=== PATIENT | male | born 1975 | race Caucasian/White ===

== ENCOUNTER 2019-09-13 19:56 | Emergency (ER) | payer MEDICARE, MEDICAID, SELFPAY ==
--- NOTE | ~2019-09-13 | XR_ITS ---
EXAMINATION: XR chest 2V EXAM DATE: 09/13/2019 22:35 INDICATION: Shortness of breath. Headache, fatigue. History of asthma and hypertension. TECHNIQUE: Frontal and lateral projections of the chest obtained and reviewed. Comparison is made to prior examination from 07/16/2018. FINDINGS: Cardiac silhouette is enlarged but stable in size compared to prior exam. Large epicardial fat pads. Calcified mediastinal, right hilar granulomas unchanged. Right basilar calcified parenchym al granuloma. No confluent consolidation, pneumothorax or pleural effusion suspected. There are no os seous abnormalities identified. IMPRESSION: No acute cardiopulmonary findings. Reviewed, dictated and finalized at location A.
--- NOTE | ~2019-09-13 | CT_ITS ---
EXAMINATION: CT brain wo con EXAM DATE: 09/13/2019 22:25 INDICATION: Headaches, temporary change in awareness. TECHNIQUE: Spiral CT of the head was performed without contrast. Axial, coronal and sagittal images were reviewed. The dose-length product (DLP) for this examination was 605.33 mGy-cm. The exposure w as tailored according to patient size, and iterative reconstruction (ASIR) was used as additional dos e reduction technique. Comparison is made to prior examination from 09/23/2017. FINDINGS: There is no acute intraparenchymal hemorrhage. No evidence of intraparenchymal brain mass lesion. No evidence of acute infarction. There is no mass effect or midline shift. The ventricles are normal in size. There are no extra-axial collections. There are no acute calvarial fractures. T he orbits are unremarkable. Soft tissue is unremarkable. The visualized sinuses and mastoid air rodolfo ls are well aerated. IMPRESSION: 1. No acute intracranial findings. Reviewed, dictated and finalized at location A.
[2019-09-13 20:03] VITALS: BP 185/111; PULSE 88; RESP 20; TEMP 36.8; O2SAT 97
--- NOTE | 2019-09-13 20:10 | ECG_ITS ---
Measurements Intervals [place] Rate: 90 P: 49 [place]: 195 QRS: -33 QRSD: 154 T: 26 QT: 414 QTc: 508 Interpretive Statements SINUS RHYTHM LEFT AXIS DEVIATION RIGHT BUNDLE BRANCH BLOCK BASELINE ARTIFACT- I, III, AVL, AVF, V2 ABNORMAL ECG Electronically Signed On 09-14-2019 7:18:37 CDT by Sachin Cloe D.O.
[2019-09-13 20:33] LABS: Basophils Absolute Auto 0.1 K/mm3 (0.0-0.1); Basophils Percent Auto 0.3 % (0.2-1.2); Eosinophils Absolute Auto 0.1 K/mm3 (0-0.3); Hematocrit 40.2 % (42.0-52.0); Hemoglobin 13.8 g/dL (14.0-18.0); Immature Granulocyte Absolute 0.08 K/mm3 (0.00-0.031); Immature Granulocyte Percent A 0.6 % (0-0.5); Lymphocytes Absolute Auto 2.43 K/mm3 (0.9-3.2); Lymphocytes Percent Auto 16.9 % (18.3-44.2); Mean Corpuscular HGB Conc 34.3 g/dl (32-36); Mean Corpuscular Hemoglobin 30.1 pg (26-34); Mean Corpuscular Volume 87.8 fl (80-100); Mean Platelet Volume 12.6 fl (7.4-10.4); Monocytes Absolute Auto 1.5 K/mm3 (0.1-0.6); Monocytes Percent Auto 10.5 % (2.6-8.5); Neutrophils Absolute Auto 10.2 K/mm3 (1.3-6.7); Neutrophils Percent Auto 70.7 % (45.5-73.1); Platelet Count Result 169 k/mm3 (150-375); Red Blood Count 4.58 M/mm3 (4.6-6.20); Red Cell Distribution Width 13.2 % (11.5-14.5); White Blood Count 14.4 K/mm3 (4.5-10.0)
[2019-09-13 20:41] LABS: INR 0.9; Prothrombin Time 12.1 Seconds (11.1-14.7)
[2019-09-13 20:42] LABS: Partial Thromboplastin Time 25.2 SECONDS (22.3-36.8)
[2019-09-13 20:44] LABS: Ammonia 10 umol/L (9-30); Ethanol < 10 mg/dL (<10)
[2019-09-13 20:45] LABS: Alanine Aminotransferase 26 U/L (4-50); Albumin Level 4.8 g/dL (3.5-5.1); Alkaline Phosphatase 83 U/L (38-126); Aspartate Amino Transferase 23 U/L (17-59); Bilirubin,Total 0.5 mg/dL (0.2-1.3); Blood Urea Nitrogen 21 mg/dL (9-20); Calcium 9.5 mg/dL (8.4-10.2); Carbon Dioxide 23 mmol/L (22-30); Chloride 97 mmol/L (98-107); Estimated CRCL calculation 98 ml/min; Estimated Glomerular Filt Rate > 60; Glucose 113 mg/dL (75-110); Potassium 3.3 mmol/L (3.4-5.0); Sodium 132 mmol/L (137-145)
[2019-09-13 20:56] LABS: Troponin I < 0.012 ng/mL (0.000-0.034)
[2019-09-13 20:59] VITALS: BP 179/124; PULSE 91; RESP 18; O2SAT 99
[2019-09-13 21:27] LABS: Add Urine Microscopic? NO; Appearance Urine Clear (Clear); Bilirubin Urine Negative (Negative); Blood Urine Negative (Negative); Color Urine Colorless (Yellow); Glucose Urine UA Negative (Negative); Ketones Urine Negative (Negative); Leukocyte Esterase Ur Negative LEU/UL (Negative); Nitrate Urine Negative (Negative); Protein Urine Negative (Negative); Urobilinogen Urine Negative mg/dL (<2.0)
[2019-09-13 21:28] LABS: Specific Grav Ur 1.003 (1.001-1.035)
[2019-09-13 21:31] LABS: Amphetamine Screen Urine Negative (Negative); Barbiturate Screen Urine Negative (Negative); Benzodiazepines Screen Urine Negative (Negative); Cannabinoid Screen Urine Negative (Negative); Cocaine Screen Urine Negative (Negative); Methadone Screen Urine Negative (Negative); Opiate Screen Urine Negative (Negative); Phencyclidine Screen Urine Negative (Negative)
--- NOTE | 2019-09-13 22:13 | ED.GENADULT ---
HPI - General Adult General Chief complaint: Altered Mental Status Stated complaint: Confusion Source: patient and other (watch case polisher) Mode of arrival: ambulatory History of Present Illness HPI narrative: This patient is a 43 year old male with history of bipolar, schizophrenia who presents from his shelter for evaluation of anxiety and headache. His watch case polisher is at bedside and she states patient has not been active today. Patient has been complaining of headache off and on. She states she thinks he is having alot of difficulty with his anxiety. Patient states he was having mild frontal headache earlier but is is not that bad currently. HE denies nausea, vomiting, fever, chest pain or visual changes. He thinks it is a sinus headache. Related Data Home Medications Medication Instructions Recorded Confirmed Buspar 15 mg PO BID 09/13/19 Cogentin 1 mg PO DAILY 09/13/19 Daily Multivitamin 1 cap PO DAILY 09/13/19 Fiber Laxative (methylcellulo) 1 cap PO BID 09/13/19 Symbicort 2 puff INFILTRATION BID 09/13/19 acetaminophen [Tylenol] 1,000 mg PO Q4-8H PRN 09/13/19 09/13/19 albuterol sulfate 2 puff INHALATION Q4-6H PRN 09/13/19 09/13/19 aspirin [Aspirin Low Dose] 81 mg PO DAILY 09/13/19 09/13/19 atorvastatin 40 mg PO DAILY 09/13/19 09/13/19 carvedilol 50 mg PO BID 09/13/19 clozapine 325 mg PO DIRECTED 09/13/19 hydralazine 10 mg PO TID 09/13/19 ibuprofen [Motrin IB] 400 mg PO Q6-8H PRN 09/13/19 losartan [Cozaar] 100 mg PO DAILY 09/13/19 lurasidone 80 mg PO DIRECTED 09/13/19 venlafaxine 150 mg PO DAILY 09/13/19 Allergies Allergy/AdvReac Type Severity Reaction Status Date / Time pcn Allergy Mild rash Uncoded 07/16/18 09:49 Review of Systems Review of Systems: All systems reviewed & are unremarkable except as noted in HPI and below Constitutional: Constitutional: Denies chills and Denies fever(s) Eyes: Eyes: Reports no additional eye complaints ENT: Denies dizziness, Denies nasal congestion and Denies sore throat Cardiovascular: Cardiovascular: Denies chest pain Respiratory: Respiratory: Denies cough, Reports dyspnea and Denies wheezing Gastrointestinal: Gastrointestinal: Denies abdominal pain, Denies diarrhea, Denies nausea and Denies vomiting Neurologic: Reports headache(s) Psychiatric: Psychiatric: Reports anxiety PMFSH Past Medical History Medical History (Updated 09/14/19 @ 00:51 by Marah Valdez MD) Hypertension Social History Social History (Updated 09/14/19 @ 07:52 by Marah Valdez MD) Smoking status: Current every day smoker Alcohol intake: never Substance use: never Exam Narrative: Exam Narrative: GENERAL: Well-appearing, well-nourished, and in no acute distress. HEAD: Normocephalic, atraumatic EYES: PERRLA and EOMI, conjunctiva clear without discharge EARS: TM's clear bilaterally without erythema or dullness NOSE: Nares clear, no rhinorrhea or epistaxis THROAT:Mucous membranes moist, Oropharynx normal without erythema, exudate, peritonsillar swelling or fluctuance NECK: Supple, without lymphadenopathy or mass RESPIRATORY: No respiratory distress, Airway patent, Respirations non-labored, Clear to auscultation without rales, rhonchi or wheeze HEART: Regular rate and rhythm. No murmur heard. Normal peripheral pulses. ABDOMEN: Soft, nontender, nondistended, normal active bowel sounds. No masses. No rebound or guarding, No organomegaly. EXTREMITIES: No edema, normal strength with full range of motion. SKIN: Warm, dry, normal color without rash NEURO: Alert and oriented x3. CN 2-12 grossly intact. No focal deficits. PSYCH: Normal mood , flat affect Course Consultations Consultation #1: PAtient is in no acute distress. He states he is better and ready for discharge. I have discussed his leukocytosis. Date: 09/14/19 Time: 00:49 Vital Signs Vital signs: Vital Signs Temperature 98.3 F 09/13/19 20:03 Pulse Rate 88 09/13/19 20:03 Res
[2019-09-13 22:19] VITALS: BP 145/92; PULSE 72; RESP 18
[2019-09-13 23:00] VITALS: BP 154/99; PULSE 99; RESP 13; O2SAT 95
[2019-09-14 01:10] VITALS: BP 150/80; PULSE 78; RESP 20; O2SAT 99
== END 2019-09-14 01:10 | disposition home or self-care (01) ==
PROVIDERS: Emergency Provider General Practice
DX: I10 Essential (primary) hypertension (principal); D72.829 Elevated white blood cell count, unspecified; F17.200 Nicotine dependence, unspecified, uncomplicated; F31.9 Bipolar disorder, unspecified; F20.9 Schizophrenia, unspecified; R06.02 Shortness of breath; J45.909 Unspecified asthma, uncomplicated
CPT/HCPCS: 36415; 70450; 71046; 80053; 80307; 81003; 82140; 84443; 84484; 85025; 85610; 85730; 93005; 96365; 99284; J0131

== ENCOUNTER 2019-11-15 21:15 | Emergency (ER) | payer MEDICARE, MEDICAID, SELFPAY ==
[2019-11-15 21:16] VITALS: BP 144/93; PULSE 78; RESP 18; TEMP 36.3; O2SAT 96
[2019-11-15 22:07] VITALS: BP 180/115; PULSE 88; RESP 20; O2SAT 99
[2019-11-15 22:37] LABS: Basophils Percent Auto 0.3 % (0.2-1.2); Eosinophils Absolute Auto 0.2 K/mm3 (0-0.3); Eosinophils Percent Auto 1.7 % (0-4.4); Hematocrit 37.6 % (42.0-52.0); Hemoglobin 12.6 g/dL (14.0-18.0); Immature Granulocyte Absolute 0.05 K/mm3 (0.00-0.031); Immature Granulocyte Percent A 0.4 % (0-0.5); Lymphocytes Absolute Auto 2.67 K/mm3 (0.9-3.2); Lymphocytes Percent Auto 21.1 % (18.3-44.2); Mean Corpuscular HGB Conc 33.5 g/dl (32-36); Mean Corpuscular Hemoglobin 29.6 pg (26-34); Mean Corpuscular Volume 88.3 fl (80-100); Mean Platelet Volume 12.8 fl (7.4-10.4); Monocytes Absolute Auto 1.4 K/mm3 (0.1-0.6); Monocytes Percent Auto 11.1 % (2.6-8.5); Neutrophils Absolute Auto 8.3 K/mm3 (1.3-6.7); Neutrophils Percent Auto 65.4 % (45.5-73.1); Platelet Count Result 158 k/mm3 (150-375); Red Blood Count 4.26 M/mm3 (4.6-6.20); Red Cell Distribution Width 14.2 % (11.5-14.5); White Blood Count 12.7 K/mm3 (4.5-10.0)
[2019-11-15 22:49] LABS: Alanine Aminotransferase 37 U/L (4-50); Albumin Level 4.5 g/dL (3.5-5.1); Alkaline Phosphatase 72 U/L (38-126); Anion Gap 13.3 mmol/L (7-16); Aspartate Amino Transferase 25 U/L (17-59); Bilirubin,Total 0.2 mg/dL (0.2-1.3); Blood Urea Nitrogen 14 mg/dL (9-20); Calcium 9.2 mg/dL (8.4-10.2); Carbon Dioxide 24 mmol/L (22-30); Chloride 104 mmol/L (98-107); Estimated CRCL calculation 92 ml/min; Estimated Glomerular Filt Rate > 60; Glucose 115 mg/dL (75-110); Potassium 3.3 mmol/L (3.4-5.0); Sodium 138 mmol/L (137-145)
[2019-11-15 23:00] LABS: Troponin I 0.024 ng/mL (0.000-0.034)
--- NOTE | 2019-11-15 23:20 | ED.RECABL ---
HPI - Recheck/Abnormal Lab/Rx General Chief Complaint: Recheck/Abnormal Lab/Rx Stated Complaint: high bp. Time Seen by Provider: 11/15/19 21:45 History of Present Illness HPI narrative: Patient presents with his caregiver for increasing blood pressure. He lives in a supervised residence even though he has his own apartment. His diagnosis is schizoaffective. He has no symptoms of hypertensive crisis. He has had some headaches recently which he does not have now. He has no chest pain abdominal pain back pain. He does not dispense his own medications they come from the staff. He is very polite and comfortable now. He does not smoke cigarettes, drink alcohol,. Or do drug. He thinks he weighs 240. The bed weight is 125 kg, which equals 275 pounds. At a weight gain of 35 pounds since his last doctor visit 3 months ago. MD complaint: other (Elevated blood pressure) Initial visit (ago): day(s) Related Data Home Medications Medication Instructions Recorded Confirmed acetaminophen [Tylenol] 1,000 mg PO Q6H PRN 09/13/19 09/13/19 albuterol sulfate 2 puff INHALATION Q4H PRN 09/13/19 09/13/19 aspirin [Aspirin Low Dose] 81 mg PO DAILY 09/13/19 09/13/19 atorvastatin 40 mg PO DAILY 09/13/19 09/13/19 carvedilol 50 mg PO BID 09/13/19 ibuprofen [Motrin IB] 400 mg PO Q6H PRN 09/13/19 losartan [Cozaar] 100 mg PO HS 09/13/19 lurasidone 80 mg PO HS 09/13/19 amlodipine 10 mg PO HS 11/15/19 benztropine 1 mg PO HS 11/15/19 budesonide-formoterol [Symbicort] 2 puff INHALATION BID 11/15/19 buspirone 15 mg PO TID 11/15/19 carbamide peroxide [Ear Wax 5 drp OTIC (EAR) BID 11/15/19 Removal Drops] clozapine 300 mg PO HS 11/15/19 docusate sodium 100 mg PO BID 11/15/19 hydralazine 10 mg PO DIRECTED 11/15/19 lidocaine [Lidocaine Pain Relief] 1 patch TOPICAL DAILY PRN 11/15/19 loratadine 10 mg PO DAILY 11/15/19 bh-sv-RD-vit R-[id number]-uls-coQ10 1 cap PO DAILY 11/15/19 [Daily Multivitamin] topiramate 25 mg PO BID 11/15/19 venlafaxine 75 mg PO DAILY 11/15/19 Allergies Allergy/AdvReac Type Severity Reaction Status Date / Time trifluoperazine Allergy Hallucinati Verified 11/15/19 21:25 [From Stelazine] ng Review of Systems Review of Systems: Narrative: CONSTITUTIONAL: Denies fever, chills, or sweats. EYES: Denies visual changes, redness, or discharge. ENT: Denies rhinorrhea, congestion, sore throat, or otalgia. CARDIOVASCULAR: Denies chest pain, palpitations, or edema. RESPIRATORY: Denies cough or dyspnea. GASTROINTESTINAL: Denies abdominal pain, nausea, vomiting, or diarrhea. GENITOURINARY: Denies dysuria or hematuria. SKIN: Denies rash or itching. MUSCULOSKELETAL: Denies back pain, joint pain, or myalgia. NEUROLOGIC: Denies headache, numbness, or weakness.. Simple speech. All systems reviewed & are unremarkable except as noted in HPI and below PMFSH Past Medical History Medical History (Updated 11/15/19 @ 23:25 by Sonia Mathias MD) Hypertension Morbid obesity Schizoaffective disorder Surgical History Surgical History (Updated 11/15/19 @ 23:23 by Sonia Mathias MD) History of partial nephrectomy Social History Social History (Updated 09/14/19 @ 07:52 by Marah Valdez MD) Smoking status: Current every day smoker Alcohol intake: never Substance use: never Gender identity (if verbalized by the patient): Male Exam Narrative: Exam Narrative: GENERAL: Well-appearing, well-nourished, and in no acute distress. Very sweet. HEAD: Normocephalic, atraumatic. EYES: PERRLA and EOMI. ENT: Nares clear, no rhinorrhea or epistaxis. Mucous membranes moist. NECK: Supple. CHEST: Clear to auscultation. No respiratory distress. HEART: Regular rate and rhythm. No murmur heard. Normal peripheral pulses. ABDOMEN: Soft, nontender, nondistended, normal active bowel sounds. EXTREMITIES: Normal range of motion. No edema. SKIN: Warm, dry, no rash. NEURO: No focal deficits. Alert and oriented x3. PSYCH: Normal mood a
[2019-11-15 23:44] VITALS: BP 163/101; PULSE 72; RESP 16; O2SAT 95
== END 2019-11-15 23:48 | disposition home or self-care (01) ==
PROVIDERS: Emergency Provider Emergency Medicine
DX: I10 Essential (primary) hypertension (principal); F25.9 Schizoaffective disorder, unspecified
CPT/HCPCS: 36415; 80053; 84484; 85025; 99284

== ENCOUNTER 2019-12-17 16:17 | Emergency (ER) | payer MEDICARE, MEDICAID, SELFPAY ==
--- NOTE | 2019-12-17 16:09 | ED.HA ---
HPI - Headache General Chief Complaint: Headache <Kaur Sigala MD - Last Filed: 12/17/19 18:46> Stated Complaint: TOWNSEND & Dizziness <Kaur Sigala MD - Last Filed: 12/17/19 18:46> Time Seen by Provider: 12/17/19 20:09 <Kaur Sigala MD - Last Filed: 12/17/19 18:46> Source: patient and EMS <Kaur Sigala MD - Last Filed: 12/17/19 18:46> Mode of arrival: EMS <Kaur Sigala MD - Last Filed: 12/17/19 18:46> Limitations: no limitations <Kaur Sigala MD - Last Filed: 12/17/19 18:46> History of Present Illness HPI Narrative: Patient is a 44-year-old male with a history of schizoaffective disorder who presents for evaluation of headache pain and dizziness via EMS. Patient reportedly resides at supervised residence where he began to feel headache pain approximately a week ago, but states that headache pain has been worsened today. Pt states he has experienced headaches for many monhs. Gradual onset throughout most of the day, reports a headache pain is located all over his head. He denies any vision changes, nausea, vomiting, changes in smell or taste, fever or photophobia. Patient states he has history of recurrent headaches. He took some Tylenol at home with minimal improvement. Reports some dizziness that is in his head. He denies any spinning sensation or vertigo sensation. Patient was ambulatory with a narrow based, steady gait for EMS. Patient states that the pain is bad and it at times makes him feel suicidal. He states with headaches in the past and the pain he experiences he has had to be hospitalized at [facility]. Patient reports thoughts of wanting to end his life whenever he has severe headache pain. He denies specific plan to do this. <Kaur Sigala MD - Last Filed: 12/17/19 18:46> Related Data Home Medications: Home Medications Medication Instructions Recorded Confirmed acetaminophen [Tylenol] 1,000 mg PO Q6H PRN 09/13/19 09/13/19 albuterol sulfate 2 puff INHALATION Q4H PRN 09/13/19 09/13/19 aspirin [Aspirin Low Dose] 81 mg PO DAILY 09/13/19 09/13/19 atorvastatin 40 mg PO DAILY 09/13/19 09/13/19 carvedilol 50 mg PO BID 09/13/19 ibuprofen [Motrin IB] 400 mg PO Q6H PRN 09/13/19 losartan [Cozaar] 100 mg PO HS 09/13/19 lurasidone 80 mg PO HS 09/13/19 amlodipine 10 mg PO HS 11/15/19 benztropine 1 mg PO HS 11/15/19 budesonide-formoterol [Symbicort] 2 puff INHALATION BID 11/15/19 buspirone 15 mg PO TID 11/15/19 carbamide peroxide [Ear Wax 5 drp OTIC (EAR) BID 11/15/19 Removal Drops] clozapine 300 mg PO HS 11/15/19 docusate sodium 100 mg PO BID 11/15/19 hydralazine 10 mg PO DIRECTED 11/15/19 lidocaine [Lidocaine Pain Relief] 1 patch TOPICAL DAILY PRN 11/15/19 loratadine 10 mg PO DAILY 11/15/19 mk-vl-TI-vit [id number]-tthvv-[id number]-coQ10 1 cap PO DAILY 11/15/19 [Daily Multivitamin] topiramate 25 mg PO BID 11/15/19 venlafaxine 75 mg PO DAILY 11/15/19 <Kaur Sigala MD - Last Filed: 12/17/19 18:46> Allergies/Adverse Reactions: Allergies Allergy/AdvReac Type Severity Reaction Status Date / Time trifluoperazine Allergy Hallucinati Verified 12/17/19 16:40 [From Stelazine] ng <Kaur Sigala MD - Last Filed: 12/17/19 18:46> Review of Systems Review of Systems: Narrative: CONSTITUTIONAL: Denies fever, chills, or sweats. EYES: Denies visual changes ENT: Denies rhinorrhea, congestion, sore throat, or otalgia. CARDIOVASCULAR: Denies chest pain, palpitations, or edema. RESPIRATORY: Denies cough or dyspnea. GASTROINTESTINAL: Denies abdominal pain, nausea, vomiting, or diarrhea. GENITOURINARY: Denies dysuria or hematuria. SKIN: Denies rash or itching. MUSCULOSKELETAL: Denies back pain, joint pain, or myalgia. NEUROLOGIC: Reports headache, denies numbness or weakness Psych: Reports depression <Kaur Sigala MD - Last Filed: 12/17/19 18:46> [facility] Past Medical History Medical History: Medical History (Reviewed
[2019-12-17 16:15] VITALS: BP 149/92; PULSE 75; RESP 22; O2SAT 95
[2019-12-17 16:22] VITALS: BP 149/92; PULSE 74; RESP 16; TEMP 37; O2SAT 95
--- NOTE | 2019-12-17 16:31 | ECG_ITS ---
Measurements Intervals [place] Rate: 73 P: 8 [place]: 199 QRS: -34 QRSD: 146 T: 29 QT: 440 QTc: 488 Interpretive Statements SINUS RHYTHM LEFT AXIS DEVIATION RIGHT BUNDLE BRANCH BLOCK MINIMAL Q WAVES- HIGH LATERAL LEADS BASELINE ARTIFACT- V3-V4 ABNORMAL ECG Electronically Signed On 12-17-2019 17:14:10 CDT by Sachin Cole D.O.
--- NOTE | 2019-12-17 16:34 | PC.NURSE ---
Pt reports he has suicidal ideation but further clarifies I do not want to live like this referring to his headache pain. Pt denies wanting to end his life right now, and has no plan. Pt has hx of suicidal attempts and chronic SI and depression.
[2019-12-17] MEDS: METOCLOPRAMIDE HCL 10 MG TABLET PO (16:43)
[2019-12-17] MEDS: diphenhydrAMINE HCl CAP 25 MG CAPSULE PO (16:44)
[2019-12-17] MEDS: ACETAMINOPHEN 500 MG TABLET 1000 MG PO (16:44)
[2019-12-17 17:10] LABS: Basophils Percent Auto 0.2 % (0.2-1.2); Eosinophils Absolute Auto 0.1 K/mm3 (0-0.3); Eosinophils Percent Auto 0.5 % (0-4.4); Hematocrit 42.5 % (42.0-52.0); Hemoglobin 14.2 g/dL (14.0-18.0); Immature Granulocyte Absolute 0.04 K/mm3 (0.00-0.031); Immature Granulocyte Percent A 0.3 % (0-0.5); Immature Platelet Fraction Pct 13.3 % (0.9-11.2); Lymphocytes Absolute Auto 1.68 K/mm3 (0.9-3.2); Lymphocytes Percent Auto 13.1 % (18.3-44.2); Mean Corpuscular HGB Conc 33.4 g/dl (32-36); Mean Corpuscular Hemoglobin 29.4 pg (26-34); Mean Platelet Volume 12.8 fl (7.4-10.4); Monocytes Absolute Auto 1.1 K/mm3 (0.1-0.6); Monocytes Percent Auto 8.8 % (2.6-8.5); Neutrophils Absolute Auto 9.9 K/mm3 (1.3-6.7); Neutrophils Percent Auto 77.1 % (45.5-73.1); Platelet Count Result 169 k/mm3 (150-375); Red Blood Count 4.83 M/mm3 (4.6-6.20); Red Cell Distribution Width 13.4 % (11.5-14.5); White Blood Count 12.8 K/mm3 (4.5-10.0)
[2019-12-17 17:10] LABS: Add Urine Microscopic? NO; Appearance Urine Clear (Clear); Bilirubin Urine Negative (Negative); Blood Urine Negative (Negative); Color Urine Straw (Yellow); Glucose Urine UA Negative (Negative); Ketones Urine Negative (Negative); Leukocyte Esterase Ur Negative LEU/UL (Negative); Nitrate Urine Negative (Negative); Protein Urine Negative (Negative); Urobilinogen Urine Negative mg/dL (<2.0)
[2019-12-17 17:17] LABS: Specific Grav Ur 1.004 (1.001-1.035)
[2019-12-17 17:23] LABS: Anion Gap 11 mmol/L (8-16); Blood Urea Nitrogen 14 mg/dL (9-20); Calcium 9.2 mg/dL (8.4-10.2); Carbon Dioxide 23 mmol/L (22-30); Chloride 106 mmol/L (98-107); Estimated CRCL calculation 90 ml/min; Estimated Glomerular Filt Rate > 60; Glucose 94 mg/dL (75-110); Potassium 3.3 mmol/L (3.4-5.0); Sodium 140 mmol/L (137-145)
[2019-12-17 18:11] LABS: Magnesium 2.3 mg/dL (1.6-2.3)
--- NOTE | 2019-12-17 18:19 | PC.NURSE ---
EDP went to d/c patient and he said that he is suicidal and could not leave. Pt changed into paper scrubs and moved to room 15 with a 1 to 1 sitter.
[2019-12-17 18:55] LABS: Amphetamine Screen Urine Negative (Negative); Barbiturate Screen Urine Negative (Negative); Benzodiazepines Screen Urine Negative (Negative); Cannabinoid Screen Urine Negative (Negative); Cocaine Screen Urine Negative (Negative); Methadone Screen Urine Negative (Negative); Opiate Screen Urine Negative (Negative); Phencyclidine Screen Urine Negative (Negative)
--- NOTE | 2019-12-17 19:24 | PC.NURSE ---
Assumed care of patient at this time. Received report from LISETTE Muñoz.
[2019-12-17 21:02] LABS: Acetaminophen < 10 ug/mL (10-30); Salicylate < 1.0 mg/dL (2-20)
[2019-12-17 21:33] VITALS: BP 150/100; PULSE 81; RESP 18; TEMP 37.3; O2SAT 99
--- NOTE | 2019-12-17 21:48 | PC.NURSE ---
GURINDER, charge nurse at [facility] calls to inform this nurse that the psychiatrist has declined patient.
--- NOTE | 2019-12-17 22:56 | PC.NURSE ---
1945 Patient up to flores phone to call his mother. Patient's mother requested to speak with this nurse to get update on patient's status. Patient's mother requested to be notified when patient has a bed for transfer.
--- NOTE | 2019-12-17 23:16 | PC.NURSE ---
Ana from [facility] calls to get consent from patient for treatment and possible admission.
[2019-12-18] MEDS: BENZTROPINE MESYLATE 1 MG TABLET PO (00:33)
[2019-12-18 00:34] VITALS: PULSE 94
[2019-12-18] MEDS: busPIRone HCL 10 MG, busPIRone HCL 5 MG 15 MG PO ×2 (00:34→23:58)
[2019-12-18] MEDS: amLODIPine BESYLATE 5 MG TABLET 10 MG PO ×2 (00:34→23:58)
[2019-12-18] MEDS: TOPIRAMATE 25 MG TABLET PO (00:34)
[2019-12-18] MEDS: DOCUSATE SODIUM 100 MG CAPSULE PO ×2 (00:34→23:59)
[2019-12-18] MEDS: carvediloL 25 MG TABLET 50 MG PO (00:34)
[2019-12-18] MEDS: LOSARTAN POTASSIUM 100 MG TABLET PO (00:34)
--- NOTE | 2019-12-18 01:09 | PC.NURSE ---
Anne from [facility] calls to get triage information on patient.
--- NOTE | 2019-12-18 01:11 | PC.NURSE ---
Anne, from [facility] calls to also inform this nurse that they are waiting on the COVID swab and to have the results faxed. Anne stated she will continue to look for a bed and possibly hold one for the patient but when the COVID results come, to fax them over.
--- NOTE | 2019-12-18 01:15 | PC.NURSE ---
Patient's mother calls to get update on patient.
--- NOTE | 2019-12-18 05:08 | PC.NURSE ---
Natalya calls to get update on patient.
--- NOTE | 2019-12-18 05:25 | PC.NURSE ---
This nurse performed rounding on patient, patient stating I just feel like all of this is hitting me all at once, I just have so much anxiety I feel like I might throw up. Patient did have one episode of vomiting. ERP notifed. Medication orders being placed.
[2019-12-18] MEDS: ONDANSETRON INJ 4 MG/2 ML VIAL IV PUSH (05:32)
[2019-12-18 06:24] VITALS: BP 151/99; PULSE 100; RESP 18; TEMP 37.1; O2SAT 97
--- NOTE | 2019-12-18 06:50 | PC.NURSE ---
Patient given his breakfast tray. Patient denies any nausea at this time. Sitter at bedside.
[2019-12-18 21:37] VITALS: BP 144/88; PULSE 101; RESP 16; O2SAT 98
--- NOTE | 2019-12-18 22:11 | PC.NURSE ---
give patient lurasidone 120 mg home med give patient clozapine 300 mg home med give patient fluticasone 1 spray home med
[2019-12-19] MEDS: LOSARTAN POTASSIUM 100 MG TABLET PO
[2019-12-19] MEDS: LORATADINE 10 MG TABLET PO
[2019-12-19 00:01] VITALS: PULSE 101
[2019-12-19] MEDS: carvediloL 25 MG TABLET 50 MG PO ×2 (00:01→09:33)
[2019-12-19] MEDS: hydrALAZINE HCL 50 MG TABLET PO ×3 (00:02→15:38)
[2019-12-19] MEDS: VENLAFAXINE HCL XR 75 MG CAP.ER.24H PO (00:02)
[2019-12-19] MEDS: TOPIRAMATE 25 MG TABLET PO ×2 (00:03→09:34)
[2019-12-19] MEDS: CITALOPRAM HYDROBROMIDE 20 MG TABLET PO (00:03)
[2019-12-19] MEDS: BENZTROPINE MESYLATE 1 MG TABLET PO (00:04)
[2019-12-19] MEDS: ACETAMINOPHEN 500 MG TABLET 1000 MG PO (02:48)
[2019-12-19] MEDS: diphenhydrAMINE HCl CAP 25 MG CAPSULE 50 MG PO (02:48)
[2019-12-19] MEDS: IBUPROFEN 400 MG TABLET PO (02:48)
--- NOTE | 2019-12-19 03:59 | PC.NURSE ---
latuda and clozapine in the safe. medications are verified by pharmacy.
--- NOTE | 2019-12-19 04:00 | PC.NURSE ---
home meds that are not used by us are placed in patient cabinet.
[2019-12-19] MEDS: PHARMACIST COMMUNICATION ORDER 1 EACH XX (06:28)
--- NOTE | 2019-12-19 07:18 | PC.NURSE ---
Assumed care of patient from LISETTE Jones
[2019-12-19 07:34] VITALS: BP 160/100; PULSE 74; RESP 18; O2SAT 96
--- NOTE | 2019-12-19 09:13 | PC.NURSE ---
Angelica from the transfer center called in regard to finding placement. wanting to know if covid results were in, they have not been resulted at this time. will call lab for an ETA on results Angelica [phone]
[2019-12-19] MEDS: ATORVASTATIN 40 MG TABLET PO (09:32)
[2019-12-19] MEDS: VENLAFAXINE HCL XR 75 MG CAP.ER.24H 150 MG PO (09:32)
[2019-12-19] MEDS: ASPIRIN 81 MG ENTERIC TABLET PO (09:32)
[2019-12-19 09:33] VITALS: PULSE 74
[2019-12-19] MEDS: busPIRone HCL 10 MG, busPIRone HCL 5 MG 15 MG PO ×2 (09:33→15:38)
[2019-12-19] MEDS: DOCUSATE SODIUM 100 MG CAPSULE PO (09:34)
[2019-12-19 11:06] VITALS: BP 133/90; PULSE 69; RESP 18; TEMP 36.3; O2SAT 97
[2019-12-19 11:39] LABS: SARS-CoV-2 RNA PCR Negative
[2019-12-19 13:23] VITALS: BP 148/85; PULSE 72; RESP 18; O2SAT 98
[2019-12-19 15:35] VITALS: BP 153/92; PULSE 77; O2SAT 96
== END 2019-12-19 16:27 | disposition short-term general hospital (02) ==
PROVIDERS: Emergency Medicine; Emergency Provider Emergency Medicine
DX: R51 Headache (principal); F32.9 Major depressive disorder, single episode, unspecified; R45.851 Suicidal ideations; Z20.828 Contact with and (suspected) exposure to other viral communicable diseases; F25.9 Schizoaffective disorder, unspecified; I10 Essential (primary) hypertension; E66.01 Morbid (severe) obesity due to excess calories; Z68.38 Body mass index [BMI] 38.0-38.9, adult; Z90.5 Acquired absence of kidney; Z79.899 Other long term (current) drug therapy
CPT/HCPCS: 36415; 80048; 80307; 81003; 83735; 84443; 85025; 85055; 87635; 93005; 96374; 96375; 99285; A9270; C9803; J1100; J2060; J2405; U0003

== ENCOUNTER 2021-01-16 19:58 | Emergency (ER) | payer MEDICARE, MEDICAID, SELFPAY ==
[2021-01-16 20:22] VITALS: BP 170/104; PULSE 91; RESP 20; TEMP 36.8; O2SAT 98
--- NOTE | 2021-01-16 22:04 | ECG_ITS ---
Measurements Intervals [place] Rate: 79 P: 63 [place]: 197 QRS: -30 QRSD: 160 T: 39 QT: 435 QTc: 499 Interpretive Statements SINUS RHYTHM RIGHT BUNDLE BRANCH BLOCK VOLTAGE CRITERIA FOR LVH ABNORMAL ECG Electronically Signed On 01-17-2021 6:12:47 CDT by Sachin Cole D.O.
[2021-01-16 22:19] LABS: Basophils Absolute Auto 0.1 K/mm3 (0.0-0.1); Basophils Percent Auto 0.4 % (0.2-1.2); Eosinophils Absolute Auto 0.1 K/mm3 (0-0.3); Eosinophils Percent Auto 0.5 % (0-4.4); Hematocrit 45.1 % (42.0-52.0); Hemoglobin 15.5 g/dL (14.0-18.0); Immature Granulocyte Absolute 0.05 K/mm3 (0.00-0.031); Immature Granulocyte Percent A 0.4 % (0-0.5); Lymphocytes Absolute Auto 3.04 K/mm3 (0.9-3.2); Lymphocytes Percent Auto 22.8 % (18.3-44.2); Mean Corpuscular HGB Conc 34.4 g/dl (32-36); Mean Corpuscular Hemoglobin 30.8 pg (26-34); Mean Corpuscular Volume 89.5 fl (80-100); Mean Platelet Volume 12.4 fl (7.4-10.4); Monocytes Absolute Auto 1.2 K/mm3 (0.1-0.6); Monocytes Percent Auto 9.3 % (2.6-8.5); Neutrophils Absolute Auto 8.9 K/mm3 (1.3-6.7); Neutrophils Percent Auto 66.6 % (45.5-73.1); Platelet Count Result 168 k/mm3 (150-375); Red Blood Count 5.04 M/mm3 (4.6-6.20); Red Cell Distribution Width 12.6 % (11.5-14.5); White Blood Count 13.3 K/mm3 (4.5-10.0)
[2021-01-16 22:29] LABS: Acetaminophen < 10 ug/mL (10-30); Ethanol < 10 mg/dL (<10); Salicylate < 1.0 mg/dL (2-20)
[2021-01-16 22:30] LABS: Alanine Aminotransferase 36 U/L (4-50); Albumin Level 4.9 g/dL (3.5-5.1); Alkaline Phosphatase 104 U/L (38-126); Anion Gap 10 mmol/L (8-16); Aspartate Amino Transferase 26 U/L (17-59); Bilirubin,Total 0.4 mg/dL (0.2-1.3); Blood Urea Nitrogen 15 mg/dL (9-20); Calcium 9.8 mg/dL (8.4-10.2); Carbon Dioxide 26 mmol/L (22-30); Chloride 107 mmol/L (98-107); Estimated CRCL calculation 127 ml/min; Estimated Glomerular Filt Rate > 60; Glucose 105 mg/dL (65-110); Potassium 3.2 mmol/L (3.4-5.0); Sodium 143 mmol/L (137-145)
[2021-01-16 22:57] LABS: Amphetamine Screen Urine Negative (Negative); Barbiturate Screen Urine Negative (Negative); Benzodiazepines Screen Urine Negative (Negative); Cannabinoid Screen Urine Negative (Negative); Cocaine Screen Urine Negative (Negative); Methadone Screen Urine Negative (Negative); Opiate Screen Urine Negative (Negative); Phencyclidine Screen Urine Negative (Negative)
--- NOTE | 2021-01-16 23:31 | ED.PSYCH ---
HPI - Psych General Chief Complaint: Psychiatric Symptoms Stated Complaint: panic attacks Time Seen by Provider: 01/16/21 21:53 Source: patient and other History of Present Illness HPI Narrative: Patient reports he is not feeling well. Patient chetna he is recently admitted to [facility] psychiatric facility released January 07. Report on release they made changes to some of his psychiatric medications. Since his release he reports that increase anxiety and has been feeling off since his medication changes. A home health worker is at bedside and reports that patient has had increased paranoia. Reports he is hearing people talking about him and that makes him very anxious. He also reports headaches and generalized fatigue since his medication changes. Also reports he has had increasing thoughts of hurting himself with a plan to take a bunch of pills. He was hoping to be evaluated by behavioral health to discuss his medications. Related Data Home Medications Medication Instructions Recorded Confirmed acetaminophen [Tylenol] 1,000 mg PO Q6H PRN 09/13/19 11/13/20 aspirin [Aspirin Low Dose] 81 mg PO DAILY 09/13/19 11/13/20 atorvastatin 40 mg PO DAILY 09/13/19 11/13/20 carvedilol 50 mg PO BID 09/13/19 11/13/20 ibuprofen [Motrin IB] 400 mg PO Q6H PRN 09/13/19 11/13/20 losartan [Cozaar] 100 mg PO HS 09/13/19 11/13/20 lurasidone 120 mg PO HS 09/13/19 11/13/20 amlodipine 10 mg PO HS 11/15/19 11/13/20 benztropine 1 mg PO HS 11/15/19 11/13/20 budesonide-formoterol [Symbicort] 2 puff INHALATION BID 11/15/19 11/13/20 buspirone 15 mg PO TID 11/15/19 11/13/20 clozapine 300 mg PO HS 11/15/19 11/13/20 docusate sodium 100 mg PO BID 11/15/19 11/13/20 hydralazine 50 mg PO TID 11/15/19 11/13/20 loratadine 10 mg PO HS 11/15/19 11/13/20 tn-dj-MG-vit E-zvvzz-mup-coQ10 1 cap PO DAILY 11/15/19 11/13/20 [Daily Multivitamin] topiramate 25 mg PO BID 11/15/19 11/13/20 venlafaxine 150 mg PO QAM 11/15/19 11/13/20 albuterol sulfate [Ventolin HFA] INHALATION 12/18/19 11/13/20 citalopram mg 12/18/19 11/13/20 Allergies Allergy/AdvReac Type Severity Reaction Status Date / Time trifluoperazine Allergy Hallucinati Verified 01/17/21 00:50 [From Stelazine] ng Review of Systems Review of Systems: CONSTITUTIONAL: Denies fever, chills, or sweats. EYES: Denies visual changes, redness, or discharge. ENT: Denies rhinorrhea, congestion, sore throat, or otalgia. CARDIOVASCULAR: Denies chest pain, palpitations, or edema. RESPIRATORY: Denies cough or dyspnea. GASTROINTESTINAL: Denies abdominal pain, nausea, vomiting, or diarrhea. GENITOURINARY: Denies dysuria or hematuria. SKIN: Denies rash or itching. MUSCULOSKELETAL: Denies back pain, joint pain, or myalgia. NEUROLOGIC: Denies numbness, dizziness, or weakness. All systems reviewed & are unremarkable except as noted in HPI and below PMFSH Past Medical History Medical History (Updated 01/17/21 @ 02:13 by Keyur Mejia MD) Hypertension Morbid obesity Schizoaffective disorder Surgical History Surgical History History of partial nephrectomy Social History Social History Smoking status: Current every day smoker Alcohol intake: never Substance use: never Substance use type: does not use Gender identity (if verbalized by the patient): Male Exam Narrative: GENERAL: Well-appearing, well-nourished, and in no acute distress. HEAD: Normocephalic, atraumatic. EYES: PERRLA and EOMI. ENT: Nares clear, no rhinorrhea or epistaxis. Mucous membranes moist. NECK: Supple. No masses. No JVD CHEST: Clear to auscultation. No respiratory distress. No wheezes rales or rhonchi HEART: Regular rate and rhythm. No murmur heard. Normal peripheral pulses. ABDOMEN: Soft, nontender, nondistended, normal active bowel sounds. EXTREMITIES: Normal range of motion. No edema. SKIN: Warm, dry, no rash. NEURO
[2021-01-17 00:13] LABS: Add Urine Microscopic? YES; Appearance Urine Clear (Clear); Bilirubin Urine Negative (Negative); Blood Urine Negative (Negative); Color Urine Straw (Yellow); Glucose Urine UA Negative (Negative); Ketones Urine Negative (Negative); Leukocyte Esterase Ur Negative LEU/UL (Negative); Mucus Urine Rare /lpf; Nitrate Urine Negative (Negative); Protein Urine 1+ mg/dL (Negative); Specific Grav Ur 1.009 (1.001-1.035); Squamous Epithelial Cell Urine Rare /hpf (Few); Urobilinogen Urine Negative mg/dL (<2.0)
[2021-01-17] MEDS: POTASSIUM CHLORIDE 20 MEQ PACKET (FOR LIQUID) 40 MEQ PO (00:15)
--- NOTE | 2021-01-17 00:47 | PC.NURSE ---
Per pt refuse and recycling worker pt states that due to his mental illness and recent change in medication he is having thoughts to kill himself and is struggling to adapt to the medications that have been recently discontinued.
[2021-01-17 02:24] VITALS: BP 136/78; PULSE 77; RESP 18; O2SAT 100
== END 2021-01-17 02:25 | disposition home or self-care (01) ==
PROVIDERS: Emergency Provider Emergency Medicine
DX: R45.851 Suicidal ideations (principal); R51.9 Headache, unspecified; I10 Essential (primary) hypertension; Z79.899 Other long term (current) drug therapy; Z79.82 Long term (current) use of aspirin; Z79.51 Long term (current) use of inhaled steroids
CPT/HCPCS: 36415; 80053; 80307; 81001; 84443; 85025; 93005; 99284; A9270

== ENCOUNTER 2021-03-04 10:36 | Emergency (ER) | payer OTHER, SELFPAY ==
[2021-03-04 11:11] VITALS: BP 144/101; PULSE 78; RESP 20; TEMP 36.7; O2SAT 99
--- NOTE | 2021-03-04 11:28 | ED.GENADULT ---
HPI - General Adult General Chief complaint: Anxiety Stated complaint: Headache,Elevated Blood Pressure Time Seen by Provider: 03/04/21 11:29 Source: patient Mode of arrival: ambulatory Limitations: no limitations History of Present Illness HPI narrative: Aj Londono is a 45 yo mlae with a PMH of HTN, high cholesterol,schizophrenia, depression, who comesto express care with high blood pressure reading, headache, suicidal ideation. Patient is in an assisted snf for mentally ill, care worker here with patient, states that he wants to go to the hospital has suicidal ideation but thus far they have not done what he asked them to do. He would like to go to the hospital because of the suicidal ideation but his situation is such that the [facility] worker is aware of his feelings and is talked to the central supply technician supervisor and they have to have a meeting to get him transferred with the doctor. Called his mother who is her is Parisi and message informing her that he was making the statements while he was at the [facility] and that he he wants to go to a hospital Related Data Home Medications Medication Instructions Recorded Confirmed acetaminophen [Tylenol] 1,000 mg PO Q6H PRN 09/13/19 11/13/20 aspirin [Aspirin Low Dose] 81 mg PO DAILY 09/13/19 11/13/20 atorvastatin 40 mg PO DAILY 09/13/19 11/13/20 carvedilol 50 mg PO BID 09/13/19 11/13/20 ibuprofen [Motrin IB] 400 mg PO Q6H PRN 09/13/19 11/13/20 losartan [Cozaar] 100 mg PO HS 09/13/19 11/13/20 lurasidone 120 mg PO HS 09/13/19 11/13/20 amlodipine 10 mg PO HS 11/15/19 11/13/20 benztropine 1 mg PO HS 11/15/19 11/13/20 budesonide-formoterol [Symbicort] 2 puff INHALATION BID 11/15/19 11/13/20 buspirone 15 mg PO TID 11/15/19 11/13/20 clozapine 300 mg PO HS 11/15/19 11/13/20 docusate sodium 100 mg PO BID 11/15/19 11/13/20 hydralazine 50 mg PO TID 11/15/19 11/13/20 loratadine 10 mg PO HS 11/15/19 11/13/20 sa-oz-PR-vit [id number]-iyxne-bef-coQ10 1 cap PO DAILY 11/15/19 11/13/20 [Daily Multivitamin] topiramate 25 mg PO BID 11/15/19 11/13/20 venlafaxine 150 mg PO QAM 11/15/19 11/13/20 albuterol sulfate [Ventolin HFA] INHALATION 12/18/19 11/13/20 citalopram mg 12/18/19 11/13/20 Allergies Allergy/AdvReac Type Severity Reaction Status Date / Time trifluoperazine Allergy Hallucinati Verified 01/17/21 00:50 [From Stelazine] ng Review of Systems Review of Systems: CONSTITUTIONAL: Denies fever, chills, sweats. EYES: Denies visual changes, redness, discharge. ENT: Denies rhinorrhea, congestion, sore throat, otalgia. CARDIOVASCULAR: Denies chest pain, palpitations, edema. RESPIRATORY: Denies dyspnea, wheezing, cough GASTROINTESTINAL: Denies abdominal pain, nausea, vomiting, diarrhea. GENITOURINARY: Denies dysuria, hematuria, abnormal discharge SKIN: Denies rash or itching. NEUROLOGIC: Denies numbness, or focal weakness. PSYCHIATRIC: Has suicidal ideation but he lives in the home and his care workers here Elevated blood pressure. PMFSH Past Medical History Medical History High cholesterol Hypertension Morbid obesity Schizoaffective disorder Surgical History Surgical History History of partial nephrectomy Social History Social History Smoking status: Current every day smoker Alcohol intake: never Substance use: never Substance use type: does not use Gender identity (if verbalized by the patient): Male Comments At time of signature, I agree with nursing past medical, surgical, social and family history. There is no relevant family history pertinent to the presenting complaint. Exam Narrative: GENERAL: This is a well-nourished, well-developed patient, in mild distress. He is verbalizing desire to go to the hospital because of suicidal ideation in his care worker states that she is aware of this and has communicated this
[2021-03-04] MEDS: cloNIDine HCL 0.1 MG TABLET PO (11:56)
--- NOTE | 2021-03-04 12:01 | PC.NURSE ---
Regarding patients suicidal ideation, provider has spoken with superviser at alf and left message for patients guardian. The home is aware the patient is suicidal. He makes this statement all the time They are able to care for hime.
== END 2021-03-04 12:08 | disposition home or self-care (01) ==
PROVIDERS: Emergency Provider Nurse Practitioner; PCP Internal Medicine
DX: I10 Essential (primary) hypertension (principal); F17.200 Nicotine dependence, unspecified, uncomplicated; E78.00 Pure hypercholesterolemia, unspecified; E66.01 Morbid (severe) obesity due to excess calories; Z68.45 Body mass index [BMI] 70 or greater, adult; F32.A Depression, unspecified
CPT/HCPCS: 99213; A9270; G0463

== ENCOUNTER 2021-03-17 16:11 | Emergency (ER) | payer OTHER, SELFPAY ==
[2021-03-17 16:12] VITALS: BP 175/103; PULSE 80; RESP 18; TEMP 36.2; O2SAT 98
--- NOTE | 2021-03-17 19:38 | ECG_ITS ---
Measurements Intervals [place] Rate: 79 P: 26 VA: 148 QRS: -19 QRSD: 142 T: 37 QT: 417 QTc: 479 Interpretive Statements SINUS RHYTHM POSSIBLE LEFT ATRIAL ENLARGEMENT RIGHT BUNDLE BRANCH BLOCK ABNORMAL ECG Electronically Signed On 03-17-2021 20:31:10 [employer]OREKEE[employer] HEL[employer] by Sachin Cole D.O.
[2021-03-17 19:53] LABS: Basophils Percent Auto 0.3 % (0.2-1.2); Eosinophils Absolute Auto 0.1 K/mm3 (0-0.3); Eosinophils Percent Auto 0.4 % (0-4.4); Hemoglobin 15.7 g/dL (14.0-18.0); Immature Granulocyte Absolute 0.05 K/mm3 (0.00-0.031); Immature Granulocyte Percent A 0.4 % (0-0.5); Lymphocytes Absolute Auto 2.83 K/mm3 (0.9-3.2); Mean Corpuscular HGB Conc 34.1 g/dl (32-36); Mean Corpuscular Hemoglobin 30.8 pg (26-34); Mean Corpuscular Volume 90.2 fl (80-100); Mean Platelet Volume 12.3 fl (7.4-10.4); Monocytes Absolute Auto 1.1 K/mm3 (0.1-0.6); Monocytes Percent Auto 8.1 % (2.6-8.5); Neutrophils Absolute Auto 9.4 K/mm3 (1.3-6.7); Neutrophils Percent Auto 69.8 % (45.5-73.1); Platelet Count Result 183 k/mm3 (150-375); Red Cell Distribution Width 13.2 % (11.5-14.5); White Blood Count 13.5 K/mm3 (4.5-10.0)
[2021-03-17 20:06] LABS: Alanine Aminotransferase 31 U/L (4-50); Albumin Level 4.9 g/dL (3.5-5.1); Alkaline Phosphatase 98 U/L (38-126); Anion Gap 11 mmol/L (8-16); Aspartate Amino Transferase 25 U/L (17-59); Bilirubin,Total 0.7 mg/dL (0.2-1.3); Blood Urea Nitrogen 17 mg/dL (9-20); Calcium 9.6 mg/dL (8.4-10.2); Carbon Dioxide 27 mmol/L (22-30); Chloride 104 mmol/L (98-107); Estimated CRCL calculation 102 ml/min; Estimated Glomerular Filt Rate > 60; Glucose 99 mg/dL (65-110); Potassium 3.3 mmol/L (3.4-5.0); Sodium 142 mmol/L (137-145)
--- NOTE | 2021-03-17 20:12 | ED.RECABL ---
HPI - Recheck/Abnormal Lab/Rx General Chief Complaint: Recheck/Abnormal Lab/Rx Stated Complaint: high bp, dizzy Time Seen by Provider: 03/17/21 19:36 Source: patient History of Present Illness HPI narrative: Patient presents with elevated blood pressure. Reports he has had difficulty controlling his blood pressure over the past few months but his blood pressure normally runs in the 150s and 160s is 170s today and he had a headache so he wanted to come to the ER for evaluation. He denies any chest pain or shortness of breath denies any focal numbness or weakness denies any changes in vision or changes in hearing. Related Data Home Medications Medication Instructions Recorded Confirmed acetaminophen [Tylenol] 1,000 mg PO Q6H PRN 09/13/19 11/13/20 aspirin [Aspirin Low Dose] 81 mg PO DAILY 09/13/19 11/13/20 atorvastatin 40 mg PO DAILY 09/13/19 11/13/20 carvedilol 50 mg PO BID 09/13/19 11/13/20 ibuprofen [Motrin IB] 400 mg PO Q6H PRN 09/13/19 11/13/20 losartan [Cozaar] 100 mg PO HS 09/13/19 11/13/20 lurasidone 120 mg PO HS 09/13/19 11/13/20 amlodipine 10 mg PO HS 11/15/19 11/13/20 benztropine 1 mg PO HS 11/15/19 11/13/20 budesonide-formoterol [Symbicort] 2 puff INHALATION BID 11/15/19 11/13/20 buspirone 15 mg PO TID 11/15/19 11/13/20 clozapine 300 mg PO HS 11/15/19 11/13/20 docusate sodium 100 mg PO BID 11/15/19 11/13/20 hydralazine 50 mg PO TID 11/15/19 11/13/20 loratadine 10 mg PO HS 11/15/19 11/13/20 rh-wr-ZX-vit X-xpilk-vhg-coQ10 1 cap PO DAILY 11/15/19 11/13/20 [Daily Multivitamin] topiramate 25 mg PO BID 11/15/19 11/13/20 venlafaxine 150 mg PO QAM 11/15/19 11/13/20 albuterol sulfate [Ventolin HFA] INHALATION 12/18/19 11/13/20 citalopram mg 12/18/19 11/13/20 Allergies Allergy/AdvReac Type Severity Reaction Status Date / Time trifluoperazine Allergy Hallucinati Verified 01/17/21 00:50 [From Stelazine] ng Review of Systems Review of Systems: CONSTITUTIONAL: Denies fever, chills, or sweats. EYES: Denies visual changes, redness, or discharge. ENT: Denies rhinorrhea, congestion, sore throat, or otalgia. CARDIOVASCULAR: Denies chest pain, palpitations, or edema. RESPIRATORY: Denies cough or dyspnea. GASTROINTESTINAL: Denies abdominal pain, nausea, vomiting, or diarrhea. GENITOURINARY: Denies dysuria or hematuria. SKIN: Denies rash or itching. MUSCULOSKELETAL: Denies back pain, joint pain, or myalgia. NEUROLOGIC: Denies headache, numbness, dizziness, or weakness. PSYCHIATRIC: Denies anxiety or depression. All systems reviewed & are unremarkable except as noted in HPI and below PMFSH Past Medical History Medical History High cholesterol Hypertension Morbid obesity Schizoaffective disorder Surgical History Surgical History History of partial nephrectomy Social History Social History Smoking status: Current every day smoker Alcohol intake: never Substance use: never Substance use type: does not use Gender identity (if verbalized by the patient): Male Exam Narrative: GENERAL: Well-appearing, well-nourished, and in no acute distress. HEAD: Normocephalic, atraumatic. EYES: PERRLA and EOMI. ENT: Nares clear, no rhinorrhea or epistaxis. Mucous membranes moist. NECK: Supple. No masses. No JVD CHEST: Clear to auscultation. No respiratory distress. No wheezes rales or rhonchi HEART: Regular rate and rhythm. No murmur heard. Normal peripheral pulses. ABDOMEN: Soft, nontender, nondistended, normal active bowel sounds. EXTREMITIES: Normal range of motion. No edema. SKIN: Warm, dry, no rash. NEURO: Nerves II through XII are intact, 5 out of 5 strength in all extremities sensation intact to light touch in all extremities alert and oriented x3. PSYCH: Normal mood and affect. Course Reevaluation(s) Reevaluation #1: Patient is resting comforta
[2021-03-17 20:18] LABS: Troponin I 0.023 ng/mL (0.000-0.034)
[2021-03-17 20:34] VITALS: BP 191/104; PULSE 78; RESP 20; O2SAT 99
[2021-03-17 20:35] LABS: Add Urine Microscopic? YES; Appearance Urine Clear (Clear); Bilirubin Urine Negative (Negative); Blood Urine Negative (Negative); Color Urine Yellow (Yellow); Glucose Urine UA Negative (Negative); Ketones Urine 1+ mg/dL (Negative); Leukocyte Esterase Ur Negative LEU/UL (Negative); Mucus Urine Heavy /lpf; Nitrate Urine Negative (Negative); Protein Urine 2+ mg/dL (Negative); Specific Grav Ur 1.024 (1.001-1.035); Squamous Epithelial Cell Urine Rare /hpf (Few); WBC Urine 0-3 /hpf
[2021-03-17] MEDS: ACETAMINOPHEN 500 MG TABLET 1000 MG PO (20:51)
== END 2021-03-17 21:39 | disposition home or self-care (01) ==
LOC: ANHED 21:17
PROVIDERS: Emergency Provider Emergency Medicine; PCP Internal Medicine
DX: I10 Essential (primary) hypertension (principal); E78.5 Hyperlipidemia, unspecified; F17.210 Nicotine dependence, cigarettes, uncomplicated; F20.9 Schizophrenia, unspecified
CPT/HCPCS: 36415; 80053; 81001; 84484; 85025; 93005; 99284; A9270

== ENCOUNTER 2021-11-09 14:44 | Emergency (ER) | payer OTHER, SELFPAY ==
--- NOTE | ~2021-11-09 | XR_ITS ---
EXAM: XR wrist LT min 3V, XR wrist RT min 3V DATE: 11/09/2021 15:53 HISTORY: Deep laceration to anterior wrists, white pus coming from L . COMPARISON: None available. FINDINGS: Normal mineralization. Small, subtle linear defect in the anterior cortex of the distal le ft radius. No other fracture. No dislocation. No lytic or blastic lesion. Joint spaces are maintained . No erosion or periosteal change. Large soft tissue laceration of the anterior left wrist, extending to bone, superficial to the cortical defect. Small soft tissue defect in the anterior soft tissues o f the distal right wrist, limited to the superficial soft tissues. IMPRESSION: Large distal left anterior wrist laceration, extending to bone. Small linear cortical def ect in the anterior distal left radial cortex may reflect a small cortical fracture versus summation artifact. Superficial distal anterior right wrist laceration. Reviewed, dictated and finalized at [facility]. IMPRESSION: Large distal left anterior wrist laceration, extending to bone. Sma ll linear cortical defect in the anterior distal left radial cortex may reflect a small cortical fracture versus summation artifact. Superficial distal anteri or right wrist laceration.
[2021-11-09 14:49] VITALS: BP 127/75; PULSE 105; RESP 16; TEMP 37; O2SAT 97
[2021-11-09 15:09] VITALS: BP 127/75; PULSE 95; TEMP 36.6; O2SAT 99
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
[2021-11-09 16:15] LABS: Basophils Percent Auto 0.1 % (0.2-1.2); Hematocrit 25.1 % (42.0-52.0); Hemoglobin 8.4 g/dL (14.0-18.0); Immature Granulocyte Absolute 0.41 K/mm3 (0.00-0.031); Immature Granulocyte Percent A 1.2 % (0-0.5); Immature Platelet Fraction Pct 15.6 % (0.9-11.2); Lymphocytes Absolute Auto 1.53 K/mm3 (0.9-3.2); Lymphocytes Percent Auto 4.5 % (18.3-44.2); Mean Corpuscular HGB Conc 33.5 g/dl (32-36); Mean Corpuscular Hemoglobin 30.9 pg (26-34); Mean Corpuscular Volume 92.3 fl (80-100); Mean Platelet Volume 13.3 fl (7.4-10.4); Monocytes Absolute Auto 2.5 K/mm3 (0.1-0.6); Monocytes Percent Auto 7.4 % (2.6-8.5); Neutrophils Absolute Auto 29.3 K/mm3 (1.3-6.7); Neutrophils Percent Auto 86.8 % (45.5-73.1); Platelet Count Result 159 k/mm3 (150-375); Red Blood Count 2.72 M/mm3 (4.6-6.20); White Blood Count 33.8 K/mm3 (4.5-10.0)
--- NOTE | 2021-11-09 16:15 | PC.NURSE ---
2 l ns for irrigation to bilateral wrists pt aware of NPO status
--- NOTE | 2021-11-09 16:15 | PC.NURSE ---
injuries to wrists were from a 4x2 inch piece of broken glass
[2021-11-09 16:22] LABS: Alanine Aminotransferase 75 U/L (6-50); Albumin Level 3.7 g/dL (3.5-5.1); Alkaline Phosphatase 57 U/L (38-126); Anion Gap 22 mmol/L (8-16); Aspartate Amino Transferase 96 U/L (17-59); Bilirubin,Total 0.6 mg/dL (0.2-1.3); Blood Urea Nitrogen 97 mg/dL (9-20); Calcium 7.9 mg/dL (8.4-10.2); Carbon Dioxide 17 mmol/L (22-30); Chloride 100 mmol/L (98-107); Estimated CRCL calculation 13 ml/min; Estimated Glomerular Filt Rate 7; Glucose 115 mg/dL (65-110); Potassium 3.8 mmol/L (3.4-5.0); Sodium 139 mmol/L (137-145)
[2021-11-09 16:28] LABS: Ethanol < 10 mg/dL (<10)
[2021-11-09] MEDS: ceFAZolin 2 GM/D5W 50 ML 2 GM/50 ML BAG IVPB (16:53)
[2021-11-09 17:03] LABS: Creatine Kinase 6171 U/L (55-170)
[2021-11-09 17:04] VITALS: BP 141/86; PULSE 88; RESP 16; O2SAT 98
--- NOTE | 2021-11-09 17:06 | PC.NURSE ---
declined transfer to [facility] [place] [facility] Accepted ETA 1900 Trip # [id number] [facility] ETA 1999
[2021-11-09] MEDS: GENTAMICIN SULFATE INJ 470 MG in DEXTROSE 5% 100 ML 96.64 MG IVPB (17:39)
[2021-11-09] MEDS: SODIUM CHLORIDE 0.9% IV 1,000 ML 999 ML IV CONT (17:39)
[2021-11-09 17:40] VITALS: BP 118/88; PULSE 88; RESP 16; O2SAT 98
--- NOTE | 2021-11-09 18:06 | PC.NURSE ---
UNABLE TO START MAINTENANCE FLUIDS D/T [facility]LS GENTAMICIN STOPPED D/T [facility]
== END 2021-11-09 18:03 | disposition short-term general hospital (02) ==
PROVIDERS: Emergency Provider Emergency Medicine; PCP Internal Medicine
DX: S61.522A Laceration with foreign body of left wrist, initial encounter (principal); S61.521A Laceration with foreign body of right wrist, initial encounter; S66.022A Laceration of long flexor muscle, fascia and tendon of left thumb at wrist and hand level, initial encounter; S66.121A Laceration of flexor muscle, fascia and tendon of left index finger at wrist and hand level, initial encounter; S66.123A Laceration of flexor muscle, fascia and tendon of left middle finger at wrist and hand level, initial encounter; S66.125A Laceration of flexor muscle, fascia and tendon of left ring finger at wrist and hand level, initial encounter; S66.127A Laceration of flexor muscle, fascia and tendon of left little finger at wrist and hand level, initial encounter; L08.9 Local infection of the skin and subcutaneous tissue, unspecified; N17.9 Acute kidney failure, unspecified; M62.82 Rhabdomyolysis; E78.00 Pure hypercholesterolemia, unspecified; I10 Essential (primary) hypertension; E66.01 Morbid (severe) obesity due to excess calories; Z68.39 Body mass index [BMI] 39.0-39.9, adult; F25.9 Schizoaffective disorder, unspecified; Z79.82 Long term (current) use of aspirin; Z90.5 Acquired absence of kidney; F17.200 Nicotine dependence, unspecified, uncomplicated; Z79.899 Other long term (current) drug therapy; X78.0XXA Intentional self-harm by sharp glass, initial encounter
CPT/HCPCS: 36415; 73110; 80053; 80307; 82550; 84443; 85025; 85055; 96365; 96366; 96367; 96368; 99285; J0690; J1580; J2540; J7030